=== PATIENT | female | born 1980 | race Caucasian/White ===

== ENCOUNTER 2018-06-07 07:54 | Emergency (ER) | payer SELFPAY ==
[2018-06-07 07:59] VITALS: RESP 18; TEMP 98.3
--- NOTE | 2018-06-07 08:23 | C.PDOC ---
History Of Present Illness 38 y/o female presents to the ER complaining of generalized hives which has been present since yesterday. Patient states that she has hives to the neck, chest, and thighs. Patient reports that she has itching.She notes that she took Benadryl without relief last night. She is not sure about the cause of the rash, she notes that she did change her laundry detergent recently. Denies having fever, chills, CP, and SOB. Time Seen by Provider: 06/07/18 07:58 Chief Complaint (Nursing): Allergic Reaction History Per: Patient History/Exam Limitations: no limitations Onset/Duration Of Symptoms: Days Current Symptoms Are (Timing): Still Present Severity: Moderate Past Medical History Reviewed: Historical Data, Nursing Documentation, Vital Signs Vital Signs: Last Vital Signs Temp 98.3 F 06/07/18 07:58 Pulse 119 H 06/07/18 07:58 Resp 18 06/07/18 07:58 BP 142/103 H 06/07/18 07:58 Pulse Ox 97 06/07/18 07:58 - Medical History PMH: No Chronic Diseases Surgical History: Appendectomy Family History: States: No Known Family Hx - Social History Hx Alcohol Use: No Hx Substance Use: No - Immunization History Hx Tetanus Toxoid Vaccination: No Hx Influenza Vaccination: No Hx Pneumococcal Vaccination: No Review Of Systems Except As Marked, All Systems Reviewed And Found Negative. Constitutional: Negative for: Fever, Chills Cardiovascular: Negative for: Chest Pain Respiratory: Negative for: Shortness of Breath Skin: Positive for: Rash Physical Exam - Physical Exam Appears: Non-toxic, No Acute Distress Skin: Warm, Dry, Rash (hives to chest, neck, and bilateral thighs) Head: Atraumatic, Normacephalic Eye(s): bilateral: Normal Inspection Nose: Normal Oral Mucosa: Moist Tongue: Normal Appearing, No Swelling, No Lesions Lips: Normal Appearing, No Swelling, No Lesions Throat: Normal, No Erythema, No Exudate Neck: Supple Chest: Symmetrical Cardiovascular: Rhythm Regular Respiratory: Normal Breath Sounds, No Rales, No Rhonchi, No Wheezing Neurological/Psych: Oriented x3, Normal Speech ED Course And Treatment O2 Sat by Pulse Oximetry: 97 (RA) Pulse Ox Interpretation: Normal Progress Note: Treated with prednisone 60 mg PO, benadryl and pepcid. On re- evaluation lungs clear in no distress Reassessment Condition: Improved Medical Decision Making Medical Decision Making: Plan: --Prednisone PO --Benadryl PO --Pepcid PO Disposition Counseled Patient/Family Regarding: Diagnosis, Need For Followup, Rx Given - Disposition Referrals: [facility] [Outside] [facility] [Outside] Disposition: HOME/ ROUTINE Disposition Time: 09:00 Condition: STABLE Additional Instructions: Benadryl as needed every 8 hrs for itch return to ED if any increase symptoms Prescriptions: predniSONE [Prednisone] 40 mg PO DAILY #8 tab Instructions: Hives, Contact Dermatitis (DC) Forms: [employer] (Tanzanian) - POA Present On Arrival: None - Clinical Impression Clinical Impression: Allergic urticaria - 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 - Scribe Statement The provider has reviewed the documentation as recorded by the Josh Sears Provider Attestation All medical record entries made by the Scribe were at my direction and personally dictated by me. I have reviewed the chart and agree that the record accurately reflects my personal performance of the history, physical exam, medical decision making, and the department course for this patient. I have also personally directed, reviewed, and agree with the discharge instructions and disposition.
--- NOTE | 2018-06-07 08:25 | C.PDOC ---
Time Seen by Provider: 06/07/18 07:58 Chief Complaint (Nursing): Allergic Reaction Past Medical History Vital Signs: Last Vital Signs Temp 98.3 F 06/07/18 07:58 Pulse 119 H 06/07/18 07:58 Resp 18 06/07/18 07:58 BP 142/103 H 06/07/18 07:58 Pulse Ox 97 06/07/18 07:58 Surgical History: Appendectomy - Social History Hx Alcohol Use: No Hx Substance Use: No - Immunization History Hx Tetanus Toxoid Vaccination: No Hx Influenza Vaccination: No Hx Pneumococcal Vaccination: No ED Course And Treatment O2 Sat by Pulse Oximetry: 97 Disposition Counseled Patient/Family Regarding: Diagnosis, Need For Followup, Rx Given - Disposition Referrals: [facility] [Outside] [facility] [Outside] Disposition: HOME/ ROUTINE Disposition Time: 08:30 Condition: STABLE Additional Instructions: Benadryl as needed every 8 hrs for itch return to ED if any increase symptoms Prescriptions: predniSONE [Prednisone] 40 mg PO DAILY #8 tab Instructions: Contact Dermatitis (DC), Hives - POA Present On Arrival: None - Clinical Impression Clinical Impression: Allergic urticaria
[2018-06-07 09:01] VITALS: BP 122/89; PULSE 93
[2018-06-07 12:07] VITALS: O2SAT 97
== END 2018-06-07 09:01 | disposition home or self-care (01) ==
LOC: C.ER 07:54
DX: L50.0 Allergic urticaria (principal)